=== PATIENT | male | born 1970 | race Caucasian/White ===

== ENCOUNTER 2023-02-14 05:44 | Inpatient (IN) | payer OTHER ==
[2023-02-14] VITALS (32 sets, daily range): BP systolic 110–147; BP diastolic 66–93; PULSE 51–72; RESP 18; TEMP 97.5–97.8
[~2023-02-14 05:44] MED LIST: ASPIRIN 81 MG CHEWABLE TABLET ONE; ASPIRIN 81 MG CHEWABLE TABLET PO ONE; DIAZEPAM 5 MG TABLET PO ONE; DiphenhydrAMINE HCL 50 MG CAPSULE ONE; DiphenhydrAMINE HCL 50 MG CAPSULE PO ONE; SODIUM CHLORIDE 0.9% 1,000 ML IV ONE; SODIUM CHLORIDE 0.9% 1,000 ML ONE
[2023-02-14] MEDS ORDERED: DIAZEPAM 5 MG TABLET ONE (05:45)
[2023-02-14] MEDS ORDERED: HYDR-3421 PO (06:43)
[2023-02-14] MEDS ORDERED: LIDOCAINE/PF 1% 30 ML VIAL ONE (06:43)
[2023-02-14] MEDS ORDERED: IOHEXOL 300 MG/ML 100 ML VIAL ONE (06:43)
[2023-02-14] MEDS ORDERED: HEPARIN SODIUM 1000 UNITS/NS 1,000 ML ONE (06:43)
[2023-02-14] MEDS ORDERED: SODIUM BICARBONATE 50 MEQ/50 ML VIAL ONE (06:43)
[2023-02-14] MEDS ORDERED: ESCI-8 PO (07:05)
[2023-02-14] MEDS ORDERED: MONT-40 PO (07:06)
[2023-02-14] MEDS ORDERED: METO25 PO (07:06)
[2023-02-14] MEDS ORDERED: ASPI-1444 PO (07:08)
[2023-02-14] MEDS ORDERED: LOSA100T59 PO (07:08)
[2023-02-14] MEDS ORDERED: ATOR20TA65 PO (07:08)
[2023-02-14] MEDS ORDERED: TAMS0.4C34 PO (07:08)
[2023-02-14] MEDS ORDERED: FentaNYL CITRATE PF 100 MCG/2 ML VIAL ONE ×2 (07:53→08:13)
[2023-02-14] MEDS ORDERED: MIDAZOLAM HCL 2 MG/2 ML VIAL ONE ×2 (07:53→08:23)
[2023-02-14] MEDS ORDERED: MIDAZOLAM HCL 2 MG/2 ML VIAL IVP ONE ×4 (08:00→08:45)
[2023-02-14] MEDS ORDERED: HEPARIN SODIUM 1000 UNITS/NS 1,000 ML IARTER ONE (08:00)
[2023-02-14] MEDS ORDERED: IOHEXOL 300 MG/ML 100 ML VIAL ICOR ONE (08:00)
[2023-02-14] MEDS ORDERED: FentaNYL CITRATE PF 100 MCG/2 ML VIAL IVP ONE ×3 (08:00→08:30)
[2023-02-14] MEDS ORDERED: LIDOCAINE 1% 30 ML/SOD BICARB 8.4% 4 ML SQ ONE (08:00)
[2023-02-14] MEDS ORDERED: HEPARIN SODIUM,PORCINE 1,000 UNITS/ML 10 ML VIAL IVP ONE (08:30)
[2023-02-14] MEDS ORDERED: TICAGRELOR 90 MG TABLET ONE (08:33)
[2023-02-14] MEDS ORDERED: TICAGRELOR 90 MG TABLET PO ONE (08:45)
[2023-02-14] MEDS ORDERED: HYDROCODONE/ACETAMINOPHEN 5-325 MG TABLET ONE (11:28)
[2023-02-14] MEDS ORDERED: HYDROCODONE/ACETAMINOPHEN 5-325 MG TABLET PO PRN ×2 (11:30→12:45)
[2023-02-14] MEDS ORDERED: HYDROCODONE/ACETAMINOPHEN 5-325 MG TABLET PO ONE (12:15)
[2023-02-14] MEDS ORDERED: BISACODYL 10 MG RECTAL RECTAL SUPPOSITORY PR PRN (12:45)
[2023-02-14] MEDS ORDERED: HydrOXYzine HCL 25 MG TABLET PO PRN (12:45)
[2023-02-14] MEDS ORDERED: MAGNESIUM HYDROXIDE SUSPENSION 30 ML UDCUP PO PRN (12:45)
[2023-02-14] MEDS ORDERED: ONDANSETRON HCL 4 MG/2 ML VIAL IVP PRN (12:45)
[2023-02-14] MEDS ORDERED: ZOLPIDEM TARTRATE 5 MG TABLET PO PRN (12:45)
[2023-02-14] MEDS ORDERED: MORPHINE SULFATE 2 MG/ML SYRINGE IVP PRN (12:45)
[2023-02-14] MEDS ORDERED: ACETAMINOPHEN 325 MG TABLET PO PRN (12:45)
[2023-02-14] MEDS: TICAGRELOR 90 MG TABLET PO SCH (23:43)
[2023-02-14] MEDS: METOPROLOL TARTRATE 25 MG TABLET PO SCH (23:43)
[2023-02-14] MEDS: DOCUSATE SODIUM 100 MG CAPSULE PO SCH (23:43)
[2023-02-15 00:24] VITALS: BP 131/79; PULSE 50; RESP 18; TEMP 97.4
[2023-02-15 05:37] LABS: BASOPHILS % (AUTO) 0.5 % (0.0-2.0); HEMATOCRIT 45.5 % (41-53); HEMOGLOBIN 14.9 g/dL (13.5-17.5); LYMPHOCYTES # (AUTO) 1.6 K/uL (1.0-4.8); LYMPHOCYTES % (AUTO) 22.5 % (22.0-44.0); MEAN CORPUSCULAR HEMOGLOBIN 27.9 pg (26.0-34.0); MEAN CORPUSCULAR HGB CONC 32.8 G/dL (31.0-37.0); MEAN CORPUSCULAR VOLUME 85 fL (80-100); MONOCYTES # (AUTO) 0.8 K/uL (0.1-1.0); MONOCYTES % (AUTO) 10.7 % (2.0-9.0); NEUTROPHILS # (AUTO) 4.7 K/uL (1.8-7.7); NEUTROPHILS % (AUTO) 65.3 % (40.0-70.0); PLATELET COUNT (AUTO) 201 K/uL (150-450); RED BLOOD CELL COUNT(AUTO) 5.35 MIL/uL (4.50-5.90); RED CELL DISTRIBUTION WIDTH 14.1 % (11.5-14.5); WHITE BLOOD COUNT (AUTO) 7.1 K/uL (4.5-11.0)
[2023-02-15 05:54] LABS: ANION GAP 5 mmol/L (8-16); CARBON DIOXIDE 28 mmol/L (22-29); CHLORIDE 102 mmol/L (98-107); CREATININE 0.85 mg/dL (0.60-1.30); GLOMERULAR FILTR. RATE CALC > 60 mL/min (>60); GLUCOSE,RANDOM 83 mg/dL (70-110); POTASSIUM 4.6 mmol/L (3.5-5.1); SODIUM SERUM 135 mmol/L (136-145); UREA NITROGEN, BLOOD 17 mg/dL (7-18)
[2023-02-15 06:32] VITALS: BP 123/75; PULSE 48; RESP 18; TEMP 97.4
[2023-02-15 08:00] VITALS: BP 148/82; PULSE 90; RESP 18; TEMP 97.6
[2023-02-15] MEDS: METOPROLOL TARTRATE 25 MG TABLET PO SCH (08:50)
[2023-02-15] MEDS: TICAGRELOR 90 MG TABLET PO SCH (08:51)
[2023-02-15] MEDS: DOCUSATE SODIUM 100 MG CAPSULE PO SCH (08:51)
[2023-02-15] MEDS ORDERED: ATORVASTATIN CALCIUM 20 MG TABLET PO SCH (09:00)
[2023-02-15] MEDS ORDERED: MONTELUKAST SODIUM 10 MG TABLET PO SCH (09:00)
[2023-02-15] MEDS ORDERED: TAMSULOSIN HCL 0.4 MG CAPSULE PO SCH (09:00)
[2023-02-15] MEDS ORDERED: ASPIRIN 81 MG DR TABLET PO SCH (09:00)
[2023-02-15] MEDS ORDERED: LOSARTAN POTASSIUM 50 MG TABLET PO SCH (09:00)
[2023-02-15] MEDS ORDERED: HEPARIN SODIUM,PORCINE 5,000 UNITS/ML VIAL SQ SCH (09:00)
[2023-02-15] MEDS ORDERED: ESCITALOPRAM OXALATE 10 MG TABLET PO SCH (09:00)
[2023-02-15] MEDS ORDERED: PANTOPRAZOLE SODIUM 40 MG DR TABLET PO SCH (09:00)
[2023-02-15] MEDS ORDERED: ASPI-1444 PO (09:59)
[2023-02-15] MEDS ORDERED: ATOR20TA65 PO (09:59)
[2023-02-15] MEDS ORDERED: TICA90TA PO (09:59)
== END 2023-02-15 12:11 | disposition home or self-care (01) | DRG 175 ==
LOC: CATHLAB 05:44 → 5S 05:45
PROVIDERS: ADMIT Internal Medicine Interventional Cardiology; ATTEND Internal Medicine Interventional Cardiology
PROC: 027034Z Dilation of Coronary Artery, One Artery with Drug-eluting Intraluminal Device, Percutaneous Approach (ICD-10-PCS; principal; 2023-02-14)
PROC: 4A023N7 Measurement of Cardiac Sampling and Pressure, Left Heart, Percutaneous Approach (ICD-10-PCS; 2023-02-14)
PROC: B211YZZ Fluoroscopy of Multiple Coronary Arteries using Other Contrast (ICD-10-PCS; 2023-02-14)
PROC: B215YZZ Fluoroscopy of Left Heart using Other Contrast (ICD-10-PCS; 2023-02-14)
PROC: B41FYZZ Fluoroscopy of Right Lower Extremity Arteries using Other Contrast (ICD-10-PCS; 2023-02-14)
DX: I25.110 Atherosclerotic heart disease of native coronary artery with unstable angina pectoris (principal); E66.9 Obesity, unspecified; E78.5 Hyperlipidemia, unspecified; F41.1 Generalized anxiety disorder; J45.909 Unspecified asthma, uncomplicated; I10 Essential (primary) hypertension; Z79.899 Other long term (current) drug therapy
CPT/HCPCS: 80048; 85025; 87081; 92920; 92928; 93005; J1644; J2250; J3010; J3490; J7030; Q9967; 36415-L1; 36415-TC